=== PATIENT | male | born 1955 | race Hispanic/Latino ===

== ENCOUNTER 2023-07-17 21:11 | Emergency (ER) | payer OTHER ==
[~2023-07-17] VITALS: Ht 167.6 cm; Wt 63.5 kg
[~2023-07-17 21:11] MED LIST: ACET-66 PO
[2023-07-17] MEDS ORDERED: HYDROCODONE/ACETAMINOPHEN 5/325 MG TAB PO ONE (23:30)
[2023-07-18 00:32] VITALS: BP 112/75; PULSE 92; RESP 16; O2SAT 99
== END 2023-07-18 00:38 | disposition home or self-care (01) ==
LOC: EDH 21:11
DX: S52.501A Unspecified fracture of the lower end of right radius, initial encounter for closed fracture (principal); I25.10 Atherosclerotic heart disease of native coronary artery without angina pectoris; E11.9 Type 2 diabetes mellitus without complications; E78.00 Pure hypercholesterolemia, unspecified; I10 Essential (primary) hypertension; Z86.73 Personal history of transient ischemic attack (TIA), and cerebral infarction without residual deficits; W18.39XA Other fall on same level, initial encounter; Y93.89 Activity, other specified; Y92.89 Other specified places as the place of occurrence of the external cause; Y99.8 Other external cause status
CPT/HCPCS: 29125; 73080; 73090; 73110; 73130

== ENCOUNTER → 2023-12-19 | Outpatient (CLI) | payer OTHER ==
[~2023-12-19] MED LIST changes: -ACET-66 PO; +AMOX1TAB41 PO; +ATOR20TA65 PO; +FOLI0.8T2 PO; +MIDO10TA PO; +PANT40TA54 PO; +POLY17PO4 PO; +SEVE800T27 PO
[2023-12-19 12:46] LABS: HEMOGLOBIN A1C 5.4 % (4.0-6.0)
[2023-12-19 13:21] LABS: CREATININE 8.3 mg/dL (0.5-1.3)
== END | disposition home or self-care (01) ==
LOC: LAB 09:50
PROVIDERS: ATTEND Student in an Organized Health Care Education/Training Program
DX: I12.0 Hypertensive chronic kidney disease with stage 5 chronic kidney disease or end stage renal disease (principal); I95.1 Orthostatic hypotension; N18.6 End stage renal disease; E11.9 Type 2 diabetes mellitus without complications; Z79.899 Other long term (current) drug therapy
CPT/HCPCS: 36415; 80048; 80061; 83036

== ENCOUNTER 2024-03-22 13:42 | Emergency (ER) | payer OTHER ==
[2024-03-22 13:49] VITALS: TEMP 97.6
[2024-03-22 14:02] LABS: BASOPHILS # (AUTO) 0.06 K/uL (0.00-0.20); BASOPHILS % (AUTO) 0.6 % (0.0-5.0); EOSINOPHILS # (AUTO) 0.18 K/uL (0.00-0.70); EOSINOPHILS % (AUTO) 1.8 % (0.0-8.0); HEMATOCRIT 44.7 % (42-54); IMMATURE GRANULOCYTE ABSOLUTE 0.04 K/uL (0-1); LYMPHOCYTES # (AUTO) 2.6 K/uL (1.0-4.8); LYMPHOCYTES % (AUTO) 26.4 % (21.0-51.0); MEAN CORPUSCULAR HEMOGLOBIN 30.7 pg (27.0-33.0); MEAN CORPUSCULAR HGB CONC 32.7 g/dL (32.0-36.0); MEAN CORPUSCULAR VOLUME 94.1 fL (79-99); MONOCYTES % (AUTO) 10.3 % (3.0-13.0); NEUTROPHILS % (AUTO) 60.5 % (40.0-77.0); PLATELET COUNT (AUTO) 191 K/uL (130-400); RED BLOOD CELL COUNT(AUTO) 4.75 MIL/uL (4.50-6.20); RED CELL DISTRIBUTION WIDTH 14.6 % (11.0-15.5); WHITE BLOOD COUNT (AUTO) 9.9 K/uL (4.8-10.8)
[2024-03-22 14:11] LABS: POTASSIUM 4.2 mmol/L (3.5-5.1)
[2024-03-22 14:16] LABS: ALBUMIN 3.5 g/dL (3.5-5.0); BILIRUBIN,TOTAL 0.7 mg/dL (0.2-1.0); TOTAL PROTEIN, SERUM 7.1 g/dL (6.0-8.3)
[2024-03-22 14:20] LABS: INR 1.09 (0.85-1.15); PROTHROMBIN TIME 11.7 SEC (9.6-11.6)
[2024-03-22 14:22] LABS: PARTIAL THROMBOPLASTIN TIME 26.8 SEC (26.3-35.5)
[2024-03-22] MEDS: NITROGLYCERIN 0.4 MG SL TAB SL ONE (14:52)
[2024-03-22 15:30] VITALS: BP 146/69; PULSE 57; RESP 20; O2SAT 99
[2024-03-22] MEDS ORDERED: PRED50TA2 PO (18:11)
== END 2024-03-22 18:33 | disposition home or self-care (01) ==
LOC: EDH 13:42
DX: I63.89 Other cerebral infarction (principal); I12.0 Hypertensive chronic kidney disease with stage 5 chronic kidney disease or end stage renal disease; N18.6 End stage renal disease; G51.0 Bell's palsy; E78.00 Pure hypercholesterolemia, unspecified; Z79.899 Other long term (current) drug therapy; Z86.73 Personal history of transient ischemic attack (TIA), and cerebral infarction without residual deficits; Z98.890 Other specified postprocedural states; Z99.2 Dependence on renal dialysis
CPT/HCPCS: 36415; 70450; 70544; 70551; 71045; 80053; 82550; 83721; 83880; 84484; 85025; 85610; 85730; 93005

== ENCOUNTER 2024-06-06 19:22 | Emergency (ER) | payer OTHER ==
[~2024-06-06] VITALS: Ht 162.6 cm; Wt 60.8 kg
[~2024-06-06 19:22] MED LIST changes: -MIDO10TA PO; +MIDO10TA3 PO; +PRED50TA2 PO
[2024-06-06] MEDS: HYDROcodone/acetaMINOPHEN 10/325 MG TAB PO ONE (19:43)
--- NOTE | 2024-06-06 21:06 | HMCIMG ---
FOREARM 2VWS LT CLINICAL HISTORY: FALL, SWELLING COMPARISON: None TECHNIQUE: AP and lateral images were obtained. FINDINGS: There is a a slightly visualized fracture of the distal radius on this study that appears to be at least one cortical offset angulated and impacted. The ulna and visualized carpal bones. CAD. IMPRESSION: Radial fracture.
[2024-06-06] MEDS: hydroMORPHone 1 MG INJ IVP ONE (21:25)
--- NOTE | 2024-06-06 21:31 | HMCIMG ---
WRIST COMP 3+VWS LT CLINICAL HISTORY: FALL, SWELLING COMPARISON: 07/17/2023 TECHNIQUE: 3 images were obtained. FINDINGS: There is a transverse nondisplaced ulnar styloid fracture. This demonstrated significant intraarticular impacted roughly 5 degree angulated distal radial fracture. The overlying and carpal bones appear intact. Soft tissues are edematous. IMPRESSION: Radial and ulnar fractures
--- NOTE | 2024-06-06 22:35 | ERN ---
General Chief Complaint: Mechanical Fall Stated Complaint: FALL Time Seen by MD: 19:34 History of Present Illness Allergies: Coded Allergies: No Known Drug Allergies (Unverified Allergy, Unknown, 03/31/23) Home Meds Active Scripts Prednisone (Prednisone) 50 Mg Tablet, 50 MG PO DAILY for 7 Days, #7 TAB Prov:YARED SINCLAIR MD 03/22/24 Polyethylene Glycol 3350 (Miralax) 17 Gram Powd.pack, 17 GM PO DAILY, #1 BOTTLE Prov:CRYSTAL MASTERS 10/31/23 Midodrine HCl (Midodrine HCl) 10 Mg Tablet, 10 MG PO TID, #30 TAB Prov:CRYSTAL MASTERS 10/31/23 Amoxicillin/Potassium Clav (Amox Tr-K Clv 250-125 mg Tab) 250 Mg-125 Mg Tablet, 1 EACH PO Q24H, #7 TAB Prov:CRYSTAL MASTERS 10/31/23 Reported Medications Atorvastatin Calcium (Atorvastatin Calcium) 20 Mg Tablet, 20 MG PO DAILY, TAB 10/25/23 Pantoprazole Sodium (Pantoprazole Sodium) 40 Mg Tablet.dr, 40 MG PO DAILY, TAB 10/25/23 Folic Acid/Vitamin B Comp W-C (Nephro-Michelle Tablet) 0.8 Mg Tablet, 0.8 MG PO DAILY, TAB 10/25/23 Sevelamer HCl (Sevelamer HCl) 800 Mg Tablet, 800 MG PO TIDMEALS, TAB 10/25/23 Past Medical History Past Medical History: CHF, CVA, Hypertension, Renal Disese, Renal Failure, Other Medical History Other: BRAIN ANEURYSM Past Surgical History: Other, LAVA Surgical History Other: LAVA Social History Social History: Negative ED Course Orders Procedure Category Date Status Time Wrist Comp 3+Vws Lt RAD 06/06/24 Resulted 19:26 Forearm 2vws Lt RAD 06/06/24 Resulted 19:26 Hydrocodone/Apap PHA 06/06/24 Complete 10/325 Tab ([place] 10) 20:00 Hydromorphone 1 Mg PHA 06/06/24 Complete Inj (Dilaudid 1mg Inj 21:00 *Nursing CPOE 06/06/24 Transmitted Communication: 22:31 Current Medications Medications (Trade) Dose Ordered Sig/Joel Route PRN Reason Start Time Stop Time Status Last Admin Dose Admin Acetaminophen/ Hydrocodone Bitart (NORco 10) 1 tab ONCE ONCE PO 06/06/24 20:00 06/06/24 20:01 DC 06/06/24 19:43 Hydromorphone HCl (DiLAUDid 1MG INJ) 1 mg ONCE ONCE IVP 06/06/24 21:00 06/06/24 21:01 DC 06/06/24 21:25 Vital Signs Date Time Temp Pulse Resp B/P (MAP) Pulse Ox O2 Delivery O2 Flow Rate FiO2 06/06/24 21:29 70 16 136/69 96 Room Air* 0 06/06/24 19:46 71 18 152/80 99 Room Air* 0 06/06/24 19:24 98.8 78 20 136/76 98 Room Air DX & DISP Disposition: Discharge Departure Impression: Primary Impression: Fracture of left distal radius Condition: Stable Referrals: MARCY WILLIS M.D. (PCP) Time of Disposition: 22:34 I have reviewed the case, and I agree with, Diagnosis and Plan KASHIF BUI Jun 06, 2024 22:35
[2024-06-06] MEDS ORDERED: ACET-2079 PO (22:38)
[2024-06-06] MEDS ORDERED: OXYC-38 PO (22:47)
--- NOTE | 2024-06-06 22:48 | NUR ---
REVERSE SUGAR TONG SPLINT APPLIED TO THE LEFT ARM AT THIS TIME. PATIENT TOLERATED WELL, NO COMPLAINTS VOICED AT THIS TIME./[place]
[2024-06-06 22:49] VITALS: BP 122/68; PULSE 72; RESP 16; TEMP 98.2; O2SAT 96
== END 2024-06-06 22:53 | disposition home or self-care (01) ==
LOC: EDH 19:22
DX: S52.592A Other fractures of lower end of left radius, initial encounter for closed fracture (principal); S52.692A Other fracture of lower end of left ulna, initial encounter for closed fracture; I11.0 Hypertensive heart disease with heart failure; I50.9 Heart failure, unspecified; Z79.52 Long term (current) use of systemic steroids; Z79.899 Other long term (current) drug therapy; Z86.73 Personal history of transient ischemic attack (TIA), and cerebral infarction without residual deficits; W18.39XA Other fall on same level, initial encounter; Y93.89 Activity, other specified; Y92.89 Other specified places as the place of occurrence of the external cause; Y99.8 Other external cause status
CPT/HCPCS: 99284; 96374; 73090; 73110; 29125; J1171

== ENCOUNTER 2025-07-01 13:20 | Emergency (ER) | payer OTHER ==
[~2025-07-01] VITALS: Ht 167.6 cm; Wt 70.3 kg
[~2025-07-01 13:20] MED LIST changes: +OXYC-38 PO
--- NOTE | 2025-07-01 14:01 | ERN ---
General Chief Complaint: Hip Pain/Injury Stated Complaint: LEFT HIP PAIN Time Seen by MD: 13:49 Source: patient, family History of Present Illness Initial Comments The patient is a 69-year-old male who came to the ER with complaint of fall. As per the patient's family, the patient was sitting on his porch and he has tried to get up and walk and fell. The patient with the family the care of the patient to help dizziness or blackout. The patient's neighbor saw him and came to pick him up at the time the patient was conscious. The patient compared of severe pain in his bilateral hip mostly on the left side and bilateral shoulder mostly on the left side. As per the patient he did hit his head Timing/Duration: 24 hours Severity: severe Modifying Factors: improves with movement Allergies: Coded Allergies: No Known Drug Allergies (Unverified Allergy, Unknown, 03/31/23) Home Meds Active Scripts Acetaminophen with Codeine (Acetaminophen-Cod #3 Tablet) 300 Mg-30 Mg Tablet, 1 TAB PO Q6HPRN PRN for pain for 5 Days, #20 TAB 0 Refills Prov:AMELIA CORNEJO DO 07/01/25 Oxycodone HCl/Acetaminophen (Percocet 5-325 mg Tablet) 5 Mg-325 Mg Tablet, 1 EACH PO Q6H for pain, #16 TAB 0 Refills Prov:YARED SINCLAIR MD 06/06/24 Prednisone (Prednisone) 50 Mg Tablet, 50 MG PO DAILY for 7 Days, #7 TAB Prov:YARED SINCLAIR MD 03/22/24 Polyethylene Glycol 3350 (Miralax) 17 Gram Powd.pack, 17 GM PO DAILY, #1 BOTTLE Prov:CRYSTAL MASTERS 10/31/23 Midodrine HCl (Midodrine HCl) 10 Mg Tablet, 10 MG PO TID, #30 TAB Prov:CRYSTAL MASTERS 10/31/23 Amoxicillin/Potassium Clav (Amox Tr-K Clv 250-125 mg Tab) 250 Mg-125 Mg Tablet, 1 EACH PO Q24H, #7 TAB Prov:CRYSTAL MASTERS 10/31/23 Reported Medications Atorvastatin Calcium (Atorvastatin Calcium) 20 Mg Tablet, 20 MG PO DAILY, TAB 10/25/23 Pantoprazole Sodium (Pantoprazole Sodium) 40 Mg Tablet.dr, 40 MG PO DAILY, TAB 10/25/23 Folic Acid/Vitamin B Comp W-C (Nephro-Michelle Tablet) 0.8 Mg Tablet, 0.8 MG PO DAILY, TAB 10/25/23 Sevelamer HCl (Sevelamer HCl) 800 Mg Tablet, 800 MG PO TIDMEALS, TAB 10/25/23 Past Medical History Past Medical History: CHF, CVA, Hypertension, Renal Disese, Renal Failure, Other Medical History Other: BRAIN ANEURYSM Past Surgical History: Other, LAVA Surgical History Other: LAVA Social History Social History: Negative Constitutional: (-) chills, (-) diaphoresis, (-) fever, (-) malaise, (-) weakness, (-) other documentation EENTM: (-) eye pain, (-) blurred vision, (-) tearing, (-) double vision, (-) ear pain, (-) ear discharge, (-) nose pain, (-) nose congestion, (-) throat pain, (-) Throat swelling, (-) mouth pain, (-) tooth pain, (-) mouth swelling, (-) other documentation Gastrointestinal/Abdominal: (-) nausea, (-) vomiting, (-) diarrhea, (-) abdominal pain, (-) abdominal distention, (-) constipation, (-) rectal bleeding, (-) dark stool/melena, (-) other documentation Musculoskeletal: (+) joint pain Skin: (-) laceration, (-) contusion, (-) abrasion, (-) abscess, (-) rash, (-) change in color, (-) change in hair, (-) change in nails, (-) diaphoresis, (-) dryness, (-) other documentation Neuro: (-) altered mental status, (-) headache, (-) syncope, (-) paralysis, (-) numbness, (-) seizure, (-) pre-existing deficit, (-) tremors, (-) weakness, (-) dizziness, (-) slurred speech, (-) vertigo, (-) other documentation Physical Exam General Appearance: (+) mild distress; (-) no apparent distress, (-) apparent distress, (-) moderate distress, (-) severe distress, (-) thin, (-) obese, (-) combative, (-) cachetic, (-) anxious, (-) other documentation Orientation: (+) alert, (+) oriented x 3 Head/Face Trauma: No Ear, Nose, Throat: (-) hearing grossly normal, (-) normal ENT inspection, (-) moist mucous membraine, (-) normal pharynx, (-) normal TM, (-) abnormal TM, (-) pharyngeal erythema, (-) sinus drainange, (-) sinus pain, (-) tonsillar exudate, (-) tonsillar swelling, (-) nasal drip, (-) nasal congestion, (-) hearing decreased, (-) dry mucous membraine, (-) other documentation Neck: (-) normal inspection, (-) supple, (-) full range of motion, (-) no JVD, (-) non-tender, (-) no bruit, (-) tender, (-) limited range of motion, (-) tender lateral, (-) tender midline, (-) thyromegaly, (-) lymphadenopathy, (-) masses, (-) carotid bruit, (-) other documentaion Respiratory: (-) chest non-tender, (-) lungs clear, (-) well ventilated, (-) d ecreased breath sounds, (-) retractions, (-) abnormal breath sound, (-) crackles, (-) plerual rub, (-) rales, (-) rhonchi, (-) stridor, (-) wheezing, (- ) other documentation Heart: (-) regular, (-) no gallop, (-) murmur, (-) irregular, (-) bradycardia, (-) tachycardia, (-) systolic murmur, (-) diastolic murmur, (-) extra beats, (-) friction rub, (-) gallop/S3, (-) gallop/S4, (-) other documentation Vascular: (-) no edema, (-) normal peripheral pulse, (-) no JVD, (-) abdominal aorta, (-) abnormal peripheral pulse, (-) carotid bruit, (-) edema, (-) JVD, (-) varicose vein, (-) other documentation Gastrointestinal: (-) soft, (-) non-tender, (-) no organomegaly, (-) bowel sound present, (-) distended, (-) tender, (-) abnormal bowel sounds, (-) bowel sound absent, (-) rebound, (-) dsouza's sign, (-) guarding, (-) hernia, (-) mass, (-) pulsatile mass, (-) CVA tenderness, (-) hepatomegaly, (-) spleenomegaly, (-) other documentation, (-) McBerney's, (-) other documentation Back: (-) normal inspection, (-) no CVA tenderness, (-) no vertebral tenderness, (-) CVA tenderness (R), (-) CVA tenderness (L), (-) decreased range of motion, (-) muscle spasm, (-) vertebral tenderness, (-) other Extremities Comment Bilateral lower extremity pain Tenderness on the left hip point Neurologic/Psychiatric: (-) normal speech, (-) no motor defecits, (-) no sensory deficits, (-) fiscal services manager II-XII nml as tested, (-) normal gait, (-) normal mood/affect, (-) abnormal cerebellar tests, (-) abnormal gait, (-) aphasia, (-) facial droop, (-) other documentation Results Laboratory and Microbiology Lab and Micro Result Laboratory Tests Test 07/01/25 15:37 White Blood Count 11.6 K/uL (4.8-10.8) H Red Blood Count 4.44 MIL/uL (4.50-6.20) L Hemoglobin 13.6 g/dL (14.0-18.0) L Hematocrit 42.8 % (42-54) Mean Corpuscular Volume 96.4 fL (79-99) Mean Corpuscular Hemoglobin 30.6 pg (27.0-33.0) Mean Corpuscular Hemoglobin Concent 31.8 g/dL (32.0-36.0) L Red Cell Distribution Width 14.7 % (11.0-15.5) Platelet Count 290 K/uL (130-400) Mean Platelet Volume 9.7 fL (7.5-10.5) Nucleated Red Blood Cells 0.0 % (0.0-0.19) Sodium Level 140 mmol/L (136-145) Potassium Level 4.9 mmol/L (3.5-5.1) Chloride Level 96 mmol/L (101-111) L Carbon Dioxide Level 32 mmol/L (21-32) Blood Urea Nitrogen 52 mg/dL (7-18) H Creatinine 11.1 mg/dL (0.5-1.3) *H Glomerular Filtration Rate Calc 5 mL/min (>90) Random Glucose 97 mg/dL (70-105) Total Calcium 8.8 mg/dL (8.5-10.1) MDM MDM: Differential diagnosis: Fall The patient was seen and examined in ER. Patient came post fall. CT scan head, CT pelvis, CT lumbar spine, bilateral shoulder x-ray, bilateral hip x-ray was done due to patient's history of fall and pain. All the results were negative for any acute in the fractures. Patient's BMP showed elevated creatinine with the patient's established end-stage renal disease patient with dialysis. The patient was given 0.5 mg Dilaudid for pain. ED Course Orders Procedure Category Date Status Time Hip Bilat 2vw RAD 07/01/25 Resulted 13:56 Shoulder Comp 2+Vws Lt RAD 07/01/25 Resulted 13:56 Shoulder Comp 2+Vws Rt RAD 07/01/25 Resulted 13:56 Ct Head/Brain W/O CT 07/01/25 Resulted Contrast 13:56 Ct Pelvis W/O Contrast CT 07/01/25 Resulted 14:56 Ct Lumbar Spine W/O CT 07/01/25 Resulted Contrast 14:56 Cbc Without LAB 07/01/25 Complete Differential 15:01 Basic Metabolic Panel LAB 07/01/25 Complete 15:01 Hydromorphone 0.5mg PHA 07/01/25 Complete Syg (Dilaudid 0.5mg 15:30 Current Medications Medications (Trade) Dose Ordered Sig/Joel Route PRN Reason Start Time Stop Time Status Last Admin Dose Admin Hydromorphone HCl (DiLAUDid 0.5MG INJ) 0.5 mg ONCE IVP 07/01/25 15:30 07/01/25 17:14 DC 07/01/25 15:58 Vital Signs Date Time Temp Pulse Resp B/P (MAP) Pulse Ox O2 Delivery O2 Flow Rate FiO2 07/01/25 17:02 98.1 64 21 121/68 97 Room Air* 0 21 07/01/25 15:40 98.1 69 26 126/70 100 Room Air* 0 21 07/01/25 13:21 97.5 83 20 117/60 95 DX & DISP Disposition: Discharge Departure Impression: Primary Impression: Fall Condition: Stable Scripts Acetaminophen with Codeine (Acetaminophen-Cod #3 Tablet) 300 Mg-30 Mg Tablet 1 TAB PO Q6HPRN PRN for pain for 5 Days, #20 TAB 0 Refills Prov: AMELIA CORNEJO DO 07/01/25 Additional Instructions: *Follow up with your primary care physician in 2 - 3 days after discharge. *Continue all medications as prescribed. Do not discontinue or change dosages without consulting your PCP. *Gradually resume normal activities as tolerated. *Continue a balanced diet . Reduce salt intake to help manage BP. * You were seen in the ED for a fall. Imaging including CT scan of head, CT lumbar spine, CT pelvis, bilateral shoulder x-ray, bilateral hip x-ray showed no fracture or acute changes. Your giving pain medication for pain control. Referrals: MARCY WILLIS M.D. (PCP) I performed a substantive portion of the visit. I have reviewed and personally made and approve the management plan that is documented in the notes by myself with JAMIE/resident. I acknowledged full responsibility for the patient's management plan. 69-year-old with a fall yesterday. Complaining of hip/pelvic pain. He is ambulatory. X-rays and imaging unremarkable. Likely soft tissue injury. WAYNE SERVIN MD Jul 01, 2025 14:01 AMELIA CORNEJO DO Jul 01, 2025 16:53
--- NOTE | 2025-07-01 14:54 | HMCIMG ---
EXAM: CT Head Without IV contrast. CLINICAL HISTORY: Fall TECHNIQUE: Axial computed tomography images of the head/brain without intravenous contrast. COMPARISON: None provided. FINDINGS: BRAIN: No evidence of acute hemorrhage. No mass lesion. No CT evidence for acute territorial infarct. No midline shift or extra-axial collections. Periventricular hypodensities are consistent with chronic small vessel ischemic disease. Mild global cortical atrophy with ex vacuo dilatation of the CSF spaces. VENTRICLES: No hydrocephalus. ORBITS: The orbits are unremarkable. SINUSES AND MASTOIDS: The paranasal sinuses and mastoid air cells are clear. BONES: No fracture. SOFT TISSUES: Unremarkable. IMPRESSION: No acute intracranial abnormality. /[place]
--- NOTE | 2025-07-01 15:42 | HMCIMG ---
EXAM CR Left Shoulder, 2 View CLINICAL HISTORY Fall with left shoulder pain COMPARISON Right shoulder radiographs 07/01/2025 FINDINGS BONES No acute fracture or aggressive appearing osseous lesion is identified involving the left shoulder girdle. JOINTS There are mild degenerative changes of the acromioclavicular joint with joint space narrowing and small marginal osteophytes. The acromioclavicular joint interval is mildly widened, measuring approximately 1.2 cm, compatible with low-grade acromioclavicular joint sprain in the appropriate clinical setting. The acromiohumeral interval is mildly reduced, which may reflect underlying rotator cuff tendinopathy or tear. No glenohumeral or acromioclavicular joint dislocation is seen. SOFT TISSUES Periarticular soft tissues are unremarkable. No abnormal soft tissue calcifications are identified. IMPRESSION * Mild acromioclavicular joint osteoarthritis with acromioclavicular joint interval at the upper limits of normal to mildly widened approximately 1.2 cm, which can be seen with low-grade acromioclavicular joint sprain; correlate with point tenderness. * Mildly reduced acromiohumeral interval, which may be associated with rotator cuff pathology. * No acute fracture or dislocation of the left shoulder. /[place]
--- NOTE | 2025-07-01 15:42 | HMCIMG ---
EXAM CR Bilateral Hips, 2 View CLINICAL HISTORY Fall COMPARISON None provided FINDINGS BONES No acute fracture or aggressive appearing osseous lesion involving the pelvis or proximal femora is identified. JOINTS There is bilateral hip osteoarthritis, mild on the right and moderate on the left. The right hip shows mild joint space narrowing with small marginal osteophytes. The left hip demonstrates more advanced joint space narrowing with subchondral sclerosis and subchondral cysts in the acetabular and femoral head regions. Sacroiliac joints and pubic symphysis are preserved. No hip dislocation is seen. SOFT TISSUES No focal soft tissue abnormality or radiopaque foreign body is identified. IMPRESSION * Bilateral hip osteoarthritis, mild on the right and moderate on the left, with subchondral cystic change on the left. * No acute fracture or dislocation. /[place]
[2025-07-01 15:46] LABS: NUCLEATED RED BLOOD CELLS 0.0 % (0.0-0.19); PLATELET COUNT (AUTO) 290.0 K/uL (130-400); RED BLOOD CELL COUNT(AUTO) 4.44 MIL/uL (4.50-6.20); RED CELL DISTRIBUTION WIDTH 14.7 % (11.0-15.5); WHITE BLOOD COUNT (AUTO) 11.6 K/uL (4.8-10.8)
--- NOTE | 2025-07-01 15:49 | HMCIMG ---
EXAM CR Right Shoulder, 2 View CLINICAL HISTORY Fall with right shoulder pain COMPARISON None provided FINDINGS BONES No acute fracture or aggressive appearing osseous lesion is identified in the right shoulder girdle. JOINTS There are mild degenerative changes of the acromioclavicular and glenohumeral joints with marginal osteophytes. The acromiohumeral interval is mildly reduced, which may predispose to rotator cuff impingement. No glenohumeral or acromioclavicular joint dislocation is seen. SOFT TISSUES Periarticular soft tissues are unremarkable. No pathologic calcifications are identified. IMPRESSION * Mild degenerative changes of the right acromioclavicular and glenohumeral joints with mildly reduced acromiohumeral interval, which can be seen with rotator cuff impingement or tendinopathy. * No acute fracture or dislocation of the right shoulder. /[place]
[2025-07-01 15:58] LABS: GLOMERULAR FILTR. RATE CALC 5.0 mL/min (>90); GLUCOSE,RANDOM 97.0 mg/dL (70-105); SODIUM SERUM 140.0 mmol/L (136-145); UREA NITROGEN, BLOOD 52.0 mg/dL (7-18)
--- NOTE | 2025-07-01 16:21 | HMCIMG ---
ct lumbar CT LUMBAR SPINE W/O CONTRAST HISTORY: Fall COMPARISON: None TECHNIQUE: CT lumbar spine was performed with/without IV contrast. Coronal and sagittal reformats were submitted for review. CONTRAST: mL of Isovue FINDINGS: Evaluation of the cord is limited with CT. No evidence of compression fracture or subluxation. Multilevel spondylosis. No disc degenerative disease.Paraspinal soft tissues are unremarkable. Aorta is normal in caliber. For the purposes of this dictation, the lowermost, fully formed disc will be counted as the L5-S1 disc level assuming 5 nonrib-bearing lumbar vertebral segments. INTRAVERTEBRAL LEVELS: L1-2: No disc herniation or bulge. No central canal stenosis or neural foraminal narrowing. L2-3: No disc herniation or bulge. No central canal stenosis or neural foraminal narrowing. L3-4: There is disc bulge which is causing effacement of the thecal sac.. No central canal stenosis or neural foraminal narrowing. L4-5: Moderate spinal canal stenosis secondary to paracentral disc herniation approximately 6.5 mm. There is mild facet joint narrowing and there is bilateral mild neuroforaminal narrowing.. L5-S1: No disc herniation or bulge. No central canal stenosis or neural foraminal narrowing. IMPRESSION: No acute fracture or malalignment Marginal spur suggesting of osteoarthritic changes Moderate spinal canal stenosis secondary to paracentral disc herniation approximately 6.5 mm.
--- NOTE | 2025-07-01 16:26 | HMCIMG ---
CT PELVIS W/O CONTRAST Indication: Fall COMPARISON: None available Axial, sagittal and coronal tomographic images of the pelvis were obtained from the lower abdomen to the mid thighs after the intravenous administration of contrast material, without oral contrast. dlp: 1094.90 mGy.cm This exam was performed according to our department dose optimization program, which includes automated exposure control, adjustment of the mA and/or Kv according to patient size and/or use of iterative reconstruction technique This is a limited exam due to the lack of IV contrast. FINDINGS: No pelvic masses are seen. There is no adenopathy. There is no free fluid in the peritoneal cavity. The bladder is not well-distended but shows a smooth contour without focal wall thickening or endoluminal lesions. The included portions of bowel are normal There is diffuse atherosclerotic change abdominal aorta and iliac vessels with calcified plaque. The prostate and seminal vesicle appears to be normal. The muscles and fat planes look normal and preserved. There is no fluid collection of the The osseous structures appear unremarkable. IMPRESSION: No evidence of acute inflammatory changes in the pelvis. There is no acute fracture or dislocation.
[2025-07-01 16:28] LABS: CREATININE 11.1 mg/dL (0.5-1.3)
[2025-07-01] MEDS ORDERED: ACET-2079 PO (16:53)
[2025-07-01 17:02] VITALS: BP 121/68; PULSE 64; RESP 21; TEMP 98.1; O2SAT 97
== END 2025-07-01 17:13 | disposition home or self-care (01) ==
LOC: EDH 13:20
DX: M25.551 Pain in right hip (principal); M25.552 Pain in left hip; M25.511 Pain in right shoulder; M25.512 Pain in left shoulder; R51.9 Headache, unspecified; I11.0 Hypertensive heart disease with heart failure; Z79.52 Long term (current) use of systemic steroids; Z79.899 Other long term (current) drug therapy; Z86.73 Personal history of transient ischemic attack (TIA), and cerebral infarction without residual deficits; W18.39XA Other fall on same level, initial encounter; Y93.01 Activity, walking, marching and hiking; Y92.89 Other specified places as the place of occurrence of the external cause; Y99.8 Other external cause status
CPT/HCPCS: 99285; 70450; 96374; 80048; 85027; 36415; 73521; 73030; 72131; 72192; J1171